=== PATIENT | male | born 1945 | race Two or more races ===

== ENCOUNTER → 2016-08-21 | Outpatient (CLI) | payer MEDICAID ==
--- NOTE | ~2016-08-21 | CR58 ---
[facility] A Service of [facility] & [facility] RADIOLOGY TEXT RESULTS PATIENT: GISSELLE HERRERA LOCATION: [facility] : 47 UNIT #: [id number] AGE: [address]: Carrie Lewis APRN SEX: M ORDER DR: [id number] [facility] [address] [place], [place] [address] [id number] O MR#: [id number] Acc #: [id number] NAME: SHARON PITTS : 1945 SEX: M STUDY DATE/TIME: 08/21/2016 10:59 UNIT: [facility] ROOM: STUDY DESCRIPTION: CR Cervical Spine 2 or 3 Views Attending Physician: Carrie Lewis A.P.R.N. Ordering Physician: Carrie Lewis A.P.R.N. Primary Care Physician: Carrie Lewis A.P.R.N. MEDICAL IMAGING REPORT This report is preliminary unless electronic signature is present EXAM Cervical spine series 4 views 08/21/2016 HISTORY Neck pain for 2 weeks. FINDINGS There is slight scoliosis, and an upper cervical retrolisthesis at 3-4. There is no prevertebral swelling or fracture or bone erosion or destruction. Incidentally noted faint atherosclerotic vascular calcification at the left cervical carotid bifurcation. IMPRESSION Mild degenerative change without acute appearing abnormality. Dictated by... Reynaldo Solomon M.D. THIS IS AN ELECTRONICALLY VERIFIED REPORT Reynaldo Solomon M.D. at 08/25/2016 5:04 PM NISREEN/ash TD: 08/21/2016 17:52 JOB #: [id number] MEDICAL IMAGING REPORT Page 1 of 1 COPY
== END | disposition home or self-care (01) ==
LOC: CRAD 10:33
DX: M54.2 Cervicalgia (principal); M47.812 Spondylosis without myelopathy or radiculopathy, cervical region
CPT/HCPCS: 72040

== ENCOUNTER → 2016-11-24 | Outpatient (CLI) | payer MEDICAID ==
--- NOTE | ~2016-11-24 | CR58 ---
[facility] A Service of [facility] & [facility] RADIOLOGY TEXT RESULTS PATIENT: GISSELLE HERRERA LOCATION: [facility] : 47 UNIT #: [id number] AGE: [address]: Carrie Lewis APRN SEX: M ORDER DR: [id number] [facility] [address] [place], [place] [address] [id number] O MR#: [id number] Acc #: [id number] NAME: GISSELLE HERRERA : 1945 SEX: M STUDY DATE/TIME: 11/24/2016 12:22 UNIT: [facility] ROOM: STUDY DESCRIPTION: CR Cervical Spine 2 or 3 Views Attending Physician: Carrie Lewis A.P.R.N. Referring Physician: Carrie Lewis A.P.R.N. Ordering Physician: Carrie Lewis A.P.R.N. Primary Care Physician: Carrie Lewis A.P.R.N. MEDICAL IMAGING REPORT This report is preliminary unless electronic signature is present EXAM Cervical spine, 3 views. INDICATIONS Right-sided neck pain for 2 months. COMPARISON 08/21/2016 FINDINGS The alignment is stable. The vertebral body heights are maintained. Stable mild multilevel degenerative disc disease. Odontoid intact and the lateral masses are well aligned. IMPRESSION Stable mild multilevel degenerative change. Dictated by... Chester Orozco M.D. THIS IS AN ELECTRONICALLY VERIFIED REPORT Chester Orozco M.D. at 11/29/2016 1:32 PM VENITA/david TD: 11/25/2016 03:39 JOB #: [id number] MEDICAL IMAGING REPORT Page 1 of 1 COPY
== END | disposition home or self-care (01) ==
LOC: CRAD 11:56
DX: M54.2 Cervicalgia (principal); M47.892 Other spondylosis, cervical region
CPT/HCPCS: 72040

== ENCOUNTER → 2017-01-10 | Outpatient (CLI) | payer MEDICAID ==
--- NOTE | ~2017-01-10 | CR63 ---
[facility] A Service of [facility] & [facility] RADIOLOGY TEXT RESULTS PATIENT: GISSELLE HERRERA LOCATION: [facility] : 47 UNIT #: [id number] AGE: [address]: Carrie Lewis APRN SEX: M ORDER DR: [id number] [facility] [address] [place], [place] [address] [id number] O MR#: [id number] Acc #: [id number] NAME: GISSELLE HERRERA : 1945 SEX: M STUDY DATE/TIME: 01/10/2017 12:44 UNIT: [facility] ROOM: STUDY DESCRIPTION: CR Chest 2 View Attending Physician: Carrie Lewis A.P.R.N. Referring Physician: Carrie Lewis A.P.R.N. Ordering Physician: Ayleen Taylor M.D. Primary Care Physician: Carrie Lewis A.P.R.N. MEDICAL IMAGING REPORT This report is preliminary unless electronic signature is present EXAM Two-view chest. INDICATIONS Cough for 2 weeks. Weight loss. COMPARISON PA and lateral views of the chest without comparison. FINDINGS Heart and mediastinal contours are within normal limits. There is some linear airspace opacity seen on the lateral radiograph. This likely correlates with the medial right lower lobe. This probably represents an area of pneumonia. Follow up radiographs recommended. IMPRESSION Subtle area of linear airspace opacity in the right lower lobe may represent atelectasis or early pneumonia. Please correlate with clinical symptoms. Follow up radiographs are recommended. Dictated by... Farhat Mar M.D. THIS IS AN ELECTRONICALLY VERIFIED REPORT Farhat Mar M.D. at 01/10/2017 4:21 PM NEERAJ/sergio TD: 01/10/2017 16:06 JOB #: [id number] MEDICAL IMAGING REPORT Page 1 of 1 COPY
== END | disposition home or self-care (01) ==
LOC: CRAD 12:28
DX: R05 Cough (principal); R63.4 Abnormal weight loss
CPT/HCPCS: 71020